=== PATIENT | male | born 2000 | race Caucasian/White ===

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

== ENCOUNTER → 2024-05-03 | Outpatient (REF) | payer OTHER | LOC: M LAB REF 16:19 | PROVIDERS: ATTEND Physician Assistant | DX: B34.9 Viral infection, unspecified (principal); J02.9 Acute pharyngitis, unspecified ==